=== PATIENT | male | born 1990 | race Two or more races ===

== ENCOUNTER 2024-10-17 14:16 | Emergency (ER) | payer BC ==
[2024-10-17] MEDS: Diphtheria,Pertussis(Acell),Tetanus Vaccine 0.5 ML Syringe IM ONE (15:07)
[2024-10-17 16:39] LABS: HEPATITIS C AB# 0.05 INDEX (<0.8)
== END 2024-10-17 15:22 | disposition home or self-care (01) ==
LOC: MW.ED 14:16
DX: S81.032A Puncture wound without foreign body, left knee, initial encounter (principal); Z75.8 Other problems related to medical facilities and other health care; Z23 Encounter for immunization; W46.0XXA Contact with hypodermic needle, initial encounter; Y93.89 Activity, other specified
CPT/HCPCS: 36415; 86706; 86803; 87340; 87389; 90471; 90715; 99283; 99283-25